=== PATIENT | female | born 1995 | race Caucasian/White ===

== ENCOUNTER 2022-11-17 12:58 | Day surgery (SDC) | payer OTHER ==
[2022-11-17] MEDS ORDERED: hydrALAZINE 20 MG/ML VIAL SLOW IVP PRN (13:45)
[2022-11-17 14:39] VITALS: BMI 36.0
[2022-11-17 15:05] LABS: Fetal Membranes Rupture No Membranes Rupture (No Rupture)
== END 2022-11-17 15:22 | disposition home health service (06) ==
LOC: CSHLD/OP 12:58
PROVIDERS: ATTEND Obstetrics & Gynecology
DX: O42.92 Full-term premature rupture of membranes, unspecified as to length of time between rupture and onset of labor (principal); Z3A.40 40 weeks gestation of pregnancy
CPT/HCPCS: 84112; 99283

== ENCOUNTER 2022-11-20 02:51 | Inpatient (IN) | payer OTHER ==
[2022-11-20 03:33] VITALS: BMI 36.0
[2022-11-20 03:34] LABS: Fetal Membranes Rupture RUPTURE DETECTED (No Rupture)
[2022-11-20] MEDS ORDERED: Misoprostol 200 MCG TAB PR PRN (03:57)
[2022-11-20] MEDS ORDERED: Lidocaine 1% (PF) 30 ML VIAL SC PRN (03:57)
[2022-11-20] MEDS ORDERED: Fentanyl 100 MCG/2 ML VIAL SLOW IVP PRN (03:57)
[2022-11-20] MEDS ORDERED: Methylergonovine 0.2 MG/ML VIAL IM PRN (03:57)
[2022-11-20] MEDS ORDERED: Acetaminophen 500 MG TAB PO PRN (03:57)
[2022-11-20] MEDS ORDERED: Promethazine HCl 25 MG/ML VIAL IM PRN ×2 (03:57→16:55)
[2022-11-20] MEDS ORDERED: Carboprost 250 MCG/ML AMP IM PRN (03:57)
[2022-11-20] MEDS ORDERED: Tranexamic Acid 1,000 MG/10 ML VIAL IVP PRN (03:57)
[2022-11-20] MEDS ORDERED: Ondansetron PF 4 MG/2 ML Vial IVP PRN ×2 (03:57→16:55)
[2022-11-20] MEDS ORDERED: hydrALAZINE 20 MG/ML VIAL SLOW IVP PRN (03:57)
[2022-11-20] MEDS ORDERED: Lactated Ringer's 1,000 ML IV SCH (04:00)
[2022-11-20] MEDS ORDERED: NS w/ Oxytocin 30 units 500 ML IV SCH ×2 (04:00→11:44)
[2022-11-20 05:01] LABS: Hemoglobin 11.1 g/dL (12.0-15.5); Mean Corpuscular HGB CONC 32.5 g/dL (32.0-36.0); Mean Corpuscular Hemoglobin 26.1 pg (27.0-33.0); Mean Corpuscular Volume 80.3 fl (81.6-98.3); Platelet Count 331 10x3/uL (150-450); RBC Distribution Width 15.3 % (11.5-14.5); Red Blood Cell (RBC) Count 4.26 10x6/uL (3.90-5.03); White Blood Cell (WBC) Count 15.8 10x3/uL (3.5-10.5)
[2022-11-20 05:33] LABS: HBSAg Index 0.19 S/CO (0-0.99); Hep B Surf Ag - L&D Non-Reactive S/CO (NonReactive)
[2022-11-20 05:34] LABS: Syphilis Antibody Nonreactive (Nonreactive); Syphilis Antibody Index 0.03 S/CO (<1.00 Non-Reactive)
[2022-11-20] MEDS ORDERED: Meperidine HCl/PF 25 MG/ML VIAL SLOW IVP PRN (11:57)
[2022-11-20] MEDS ORDERED: Fentanyl 2 mcg/Bup 0.1% Cadd 100 ML ONE (15:32)
[2022-11-20] MEDS ORDERED: ePHEDrine Sulfate 50 MG/10 ML VIAL SLOW IVP PRN (16:55)
[2022-11-20] MEDS ORDERED: Acetaminophen 325 MG TAB PO PRN (16:55)
[2022-11-20] MEDS ORDERED: diphenhydrAMINE 50 MG/ML VIAL IVP PRN (16:55)
[2022-11-20] MEDS ORDERED: Naloxone HCl 0.4 mg/ml Vial IVP PRN ×2 (16:55)
[2022-11-20] MEDS ORDERED: Lactated Ringer's 500 ML IV PRN (16:55)
[2022-11-20] MEDS ORDERED: Moisturizing Cream (Eucerin) 113 GM JAR TOP PRN (16:55)
[2022-11-20] MEDS ORDERED: Fentanyl 2 mcg/Bupivacaine 0.1% Cassette 100 ML EPIDURAL SCH (17:00)
[2022-11-20] MEDS ORDERED: Communication Order-Pharmacy FS SCH (17:00)
[2022-11-20] MEDS ORDERED: Bupivacaine 0.25% HCL 30 ML VIAL ONE (18:42)
[2022-11-20] MEDS ORDERED: Misoprostol 200 MCG TAB ONE (20:04)
[2022-11-20] MEDS ORDERED: Methylergonovine 0.2 MG/ML VIAL ONE (20:05)
[2022-11-20] MEDS ORDERED: Carboprost 250 MCG/ML AMP ONE (20:05)
[2022-11-21] MEDS ORDERED: NS w/ Oxytocin 30 units 500 ML IV SCH (01:42)
[2022-11-21] MEDS ORDERED: Benzocaine-Menthol 82.5 ML CAN TOP PRN (01:42)
[2022-11-21] MEDS ORDERED: Misoprostol 200 MCG TAB VAG PRN (01:42)
[2022-11-21] MEDS ORDERED: Bisacodyl 10 MG SUPP PR PRN (01:42)
[2022-11-21] MEDS ORDERED: Ondansetron PF 4 MG/2 ML Vial IVP PRN (01:42)
[2022-11-21] MEDS ORDERED: Milk Of Magnesia 30 ML UDCUP PO PRN (01:42)
[2022-11-21] MEDS ORDERED: Boostrix 0.5 ML (Tdap) VIAL (>/=7 yrs of age) IM ONE (01:42)
[2022-11-21] MEDS ORDERED: HYDROcodone/Acetaminophen 5/325 mg Tablet PO PRN ×2 (01:42)
[2022-11-21] MEDS ORDERED: hydrALAZINE 20 MG/ML VIAL SLOW IVP PRN (01:42)
[2022-11-21] MEDS ORDERED: Methylergonovine 0.2 MG/ML VIAL IM PRN (01:42)
[2022-11-21] MEDS: Ibuprofen 800 MG TAB PO SCH ×3 (02:14→18:08)
[2022-11-21] MEDS: Docusate 100 MG CAP PO SCH (08:03)
[2022-11-21] MEDS: Ferrous Sulfate 325 MG TAB PO SCH ×2 (08:08→18:14)
[2022-11-22] MEDS: Ibuprofen 800 MG TAB PO SCH ×2 (05:19→08:30)
[2022-11-22] MEDS: Docusate 100 MG CAP PO SCH ×2 (06:03→07:56)
[2022-11-22 07:49] VITALS: BP 106/65; TEMP 98.3
[2022-11-22] MEDS: Ferrous Sulfate 325 MG TAB PO SCH (10:12)
== END 2022-11-22 12:30 | disposition home or self-care (01) | DRG 807 ==
LOC: CSHLD/OP 02:51 → CSHLD 03:47 → CSHPP 11-21 02:00
PROVIDERS: ADMIT Obstetrics & Gynecology; ATTEND Obstetrics & Gynecology
PROC: 10E0XZZ Delivery of Products of Conception, External Approach (ICD-10-PCS; principal; 2022-11-20)
PROC: 0KQM0ZZ Repair Perineum Muscle, Open Approach (ICD-10-PCS; 2022-11-20)
DX: O42.02 Full-term premature rupture of membranes, onset of labor within 24 hours of rupture (principal); Z37.0 Single live birth; Z3A.40 40 weeks gestation of pregnancy; Z79.82 Long term (current) use of aspirin; Z79.899 Other long term (current) drug therapy; O76 Abnormality in fetal heart rate and rhythm complicating labor and delivery; O70.1 Second degree perineal laceration during delivery
CPT/HCPCS: 51702; 84112; 85027; 86780; 86850; 86900; 86901; 87340; 99285; S0020

== ENCOUNTER 2024-07-29 00:54 | Inpatient (IN) | payer OTHER ==
[2024-07-29 01:27] VITALS: BMI 26.4
[2024-07-29 01:58] LABS: Hematocrit 37.4 % (34.9-44.5); Hemoglobin 12.9 g/dL (12.0-15.5); Mean Corpuscular HGB CONC 34.5 g/dL (32.0-36.0); Mean Corpuscular Hemoglobin 30.1 pg (27.0-33.0); Mean Corpuscular Volume 87.2 fL (81.6-98.3); Mean Platelet Volume 10.6 fL (7.4-10.4); Platelet Count 244 10x3/uL (150-450); RBC Distribution Width 14.7 % (11.5-14.5); Red Blood Cell (RBC) Count 4.29 10x6/uL (3.90-5.03); White Blood Cell (WBC) Count 15.8 10x3/uL (3.5-10.5)
[2024-07-29 02:21] LABS: HBsAg Index 0.14 S/CO (0-0.99); Hep B Surf Ag - L&D Non-Reactive S/CO (NonReactive)
[2024-07-29 02:23] LABS: Syphilis Antibody Nonreactive (Nonreactive); Syphilis Antibody Index 0.05 S/CO (<1.00 Non-Reactive)
[2024-07-29] MEDS ORDERED: Moisturizing Cream (Eucerin) 113 GM JAR TOP PRN ×2 (02:49→02:53)
[2024-07-29] MEDS ORDERED: diphenhydrAMINE 50 MG/ML VIAL IVP PRN ×2 (02:49→02:53)
[2024-07-29] MEDS ORDERED: fentaNYL 50 mcg/mL 1 mL Vial SLOW IVP PRN (02:49)
[2024-07-29] MEDS ORDERED: Promethazine HCl 25 MG/ML VIAL IM PRN ×2 (02:49→02:53)
[2024-07-29] MEDS ORDERED: Morphine 4 MG/ML VIAL SLOW IVP PRN (02:49)
[2024-07-29] MEDS ORDERED: Ketorolac Tromethamine 30 MG (1 mL) VIAL IVP PRN (02:49)
[2024-07-29] MEDS ORDERED: Naloxone HCl 0.4 mg/ml Vial IV PRN ×2 (02:49→02:53)
[2024-07-29] MEDS ORDERED: Meperidine HCl/PF 25 MG (1 mL) VIAL SLOW IVP PRN (02:49)
[2024-07-29] MEDS ORDERED: Ondansetron PF 4 MG/2 ML Vial IVP PRN ×3 (02:49→02:53)
[2024-07-29] MEDS ORDERED: Naloxone HCl 0.4 mg/ml Vial IVP PRN ×4 (02:49→02:53)
[2024-07-29] MEDS ORDERED: Ketorolac Tromethamine 30 MG (1 mL) VIAL IVP SCH (03:00)
[2024-07-29] MEDS ORDERED: Communication Order-Pharmacy FS SCH ×2 (03:00)
[2024-07-29 03:01] LABS: Analyzer IN Cardio CS NICU; RapidComm Collect By RN; pH (Cord, venous) 7.271 (7.250-7.350)
[2024-07-29] MEDS ORDERED: Boostrix 0.5 ML (Tdap) VIAL (>/=7 yrs of age) IM ONE (07:32)
[2024-07-29] MEDS ORDERED: Simethicone Chewable 80 MG TAB PO PRN (07:32)
[2024-07-29] MEDS ORDERED: hydrALAZINE 20 MG/ML VIAL SLOW IVP PRN (07:32)
[2024-07-29] MEDS: Polyethylene Glycol 3350 17 GM Packet PO SCH (08:50)
[2024-07-29] MEDS: Docusate 100 MG CAP PO SCH (08:50)
[2024-07-29] MEDS: Prenatal Vitamin 1 TAB PO SCH (08:50)
[2024-07-29] MEDS: Azithromycin 500 MG VIAL ONE (10:12)
[2024-07-29] MEDS: ePHEDrine Sulfate 50 MG/10 ML VIAL ONE ×2 (10:13)
[2024-07-29] MEDS: Morphine PF 10 MG/10 ML VIAL ONE (10:13)
[2024-07-29] MEDS: Dexmedetomidine 200 MCG/2 ML VIAL ONE (10:13)
[2024-07-29] MEDS: Oxytocin 10 UNITS/ML VIAL ONE (10:13)
[2024-07-29] MEDS: PHENYLEPHRINE-NS 100 MCG/ML 10 ML SYRINGE ONE (10:13)
[2024-07-29] MEDS: CEFAZOLIN 2 GM VIAL ONE (10:13)
[2024-07-29] MEDS: Ketorolac Tromethamine 30 MG (1 mL) VIAL IVP PRN (12:08)
[2024-07-29] MEDS ORDERED: HYDROcodone/Acetaminophen 5/325 mg Tablet PO PRN (15:00)
[2024-07-29] MEDS: Acetaminophen 325 MG TAB PO PRN (17:26)
[2024-07-30 04:59] LABS: Hemoglobin 9.7 g/dL (12.0-15.5); Mean Corpuscular HGB CONC 33.4 g/dL (32.0-36.0); Mean Corpuscular Hemoglobin 30.5 pg (27.0-33.0); Mean Corpuscular Volume 91.2 fL (81.6-98.3); Mean Platelet Volume 10.7 fL (7.4-10.4); Platelet Count 189 10x3/uL (150-450); RBC Distribution Width 15.2 % (11.5-14.5); Red Blood Cell (RBC) Count 3.18 10x6/uL (3.90-5.03); White Blood Cell (WBC) Count 14.9 10x3/uL (3.5-10.5)
[2024-07-30] MEDS: Ibuprofen 800 MG TAB PO SCH (05:15)
[2024-07-30] MEDS: HYDROcodone/Acetaminophen 5/325 mg Tablet PO PRN (08:53)
[2024-07-30 18:48] VITALS: BP 120/71; TEMP 98.5
== END 2024-07-30 17:15 | disposition home or self-care (01) | DRG 788 ==
LOC: CSHLD/OP 00:54 → CSHLD 01:24 → CSHPP 06:35
PROVIDERS: ADMIT Obstetrics & Gynecology; ATTEND Obstetrics & Gynecology
PROC: 10D00Z1 Extraction of Products of Conception, Low, Open Approach (ICD-10-PCS; principal; 2024-07-29)
DX: O32.1XX0 Maternal care for breech presentation, not applicable or unspecified (principal); Z3A.40 40 weeks gestation of pregnancy; Z37.0 Single live birth
CPT/HCPCS: 36415; 51702; 82805; 85027; 86780; 86850; 86900; 86901; 87340; 99285; J1885; J2274; J2590